=== PATIENT | female | born 1970 | race Asian ===

== ENCOUNTER 2020-03-10 09:27 | Emergency (ER) | payer OTHER ==
[~2020-03-10] VITALS: Ht 160 cm; Wt 113.4 kg
[2020-03-10 10:25] LABS: BASOPHILS 0.5 % (0.0-2.0); EOSINOPHILS 0.8 % (0.0-3.0); HEMATOCRIT 41.1 % (37.0-47.0); HEMOGLOBIN 13.8 gm/dL (12.0-15.0); LYMPHOCYTES 15.9 % (24.0-44.0); MCH 28.9 pg (26.0-34.0); MCHC 33.5 g/dL (28.0-37.0); MCV 86.4 fL (80.0-100.0); MONOCYTES 4.9 % (1.0-8.0); PLATELET COUNT 241 thou/uL (150-400); POLYS 77.9 % (36.0-66.0); RBC 4.76 mil/uL (4.20-5.00); RDW 13.5 % (10.5-14.5)
[2020-03-10 10:38] LABS: ANION GAP 11 mmol/L (7-16); BUN 12 mg/dL (7-18); CHLORIDE 98 mmol/L (98-107); CO2 27 mmol/L (21-32); CREATININE 0.7 mg/dL (0.6-1.0); GLUCOSE 221 mg/dL (74-106); POTASSIUM 3.6 mmol/L (3.5-5.1); SODIUM 136 mmol/L (136-145)
[2020-03-10 10:45] LABS: PROTIME 10.5 Seconds (9.3-11.4)
[2020-03-10 10:46] LABS: APTT 29.6 Seconds (24.5-32.8)
[2020-03-10 10:48] LABS: ALBUMIN 3.7 g/dL (3.4-5.0); MAGNESIUM 2.2 mg/dL (1.8-2.4); SGOT 24 U/L (15-37); SGPT 28 U/L (30-65); TOTAL BILIRUBIN 0.5 mg/dL (0.2-1.0); TOTAL PROTEIN 8.7 g/dL (6.4-8.2); TROPONIN-I <0.06 ng/mL (<0.06)
--- NOTE | 2020-03-10 11:48 | EKG ---
[facility] [place] [address] ELECTROCARDIOGRAM REPORT Name: VANESSA GREENERACHAEL Room #: REG [facility]#: [id number] Admission: 03/10/20 Attend Phys: Discharge: Date of : 68 Report #: [id number] THIS REPORT FOR: cc: JOLLY Hankins family physician/PCP JOLLY - [place] family physician/PCP Zach Johnson MD [facility] THIS REPORT FOR: //name// [facility] ED Test Date: 2020-03-10 Test Time: 10:06:43 Pat Name: RACHAEL GREENE Department: Room: Gender: F [employer]sembler: [facility] : 1970 Requested By: Freddy Servin Order Number: [id number] MD: Zach Johnson Measurements Intervals Berger Rate: 89 P: 77 OR: 161 QRS: 38 QRSD: 88 T: 33 QT: 345 QTc: 420 Interpretive Statements Sinus rhythm RSR' in V1 or V2, right VCD or RVH Baseline wander in lead(s) V3,V4,V5,V6 No previous ECG available for comparison Electronically Signed On 03-10-2020 11:47:53 CDT by aZch Johnson [email or web address] <ELECTRONICALLY SIGNED> By: Zach Johnson MD, FAC 03/10/20 1147 1006 1006 Zach Johnson MD, [facility] /EPI
[2020-03-10] MEDS ORDERED: CATAPRES0.1 MG PO (13:41)
[2020-03-10] MEDS ORDERED: PRINIVIL10 MG PO (13:41)
[2020-03-10 13:55] LABS: CHOLESTEROL 263 mg/dL (<200); HDL CHOLESTEROL 36 mg/dL (>40); TC:HDL 7.3 Ratio (Not establshd); TRIGLYCERIDE 456 mg/dL (<150); VLDL 91 mg/dL (<40)
[2020-03-10 14:03] VITALS: BP 142/79
[2020-03-11 04:06] LABS: GLYCOHEMOGLOBIN (HGB A1C) 8.7 % (4.8-5.6)
== END 2020-03-10 14:04 | disposition left against medical advice (07) ==
LOC: ER 09:27
PROVIDERS: Emergency Medicine; Hospitalist
DX: I63.9 Cerebral infarction, unspecified (principal); I10 Essential (primary) hypertension; E66.01 Morbid (severe) obesity due to excess calories; R73.9 Hyperglycemia, unspecified; Z68.41 Body mass index [BMI] 40.0-44.9, adult

== ENCOUNTER → 2020-07-17 | Outpatient (CLI) | payer OTHER ==
[~2020-07-17] MED LIST: CATAPRES0.1 MG PO; PRINIVIL10 MG PO
== END ==
LOC: ULTRA 09:13
PROVIDERS: ATTEND Psychiatry & Neurology Neuromuscular Medicine
DX: I63.9 Cerebral infarction, unspecified (principal); Z68.41 Body mass index [BMI] 40.0-44.9, adult